=== PATIENT | male | born 1970 | race Caucasian/White ===

== ENCOUNTER 2022-12-14 12:57 | Emergency (ER) | payer BC, SELFPAY ==
[2022-12-14 13:04] VITALS: BP 147/87; PULSE 107; RESP 20; TEMP 36.5; O2SAT 97
--- NOTE | 2022-12-14 14:24 | ED.BACK ---
HPI - Back Pain/Injury General Chief Complaint: Back Pain/Injury Stated Complaint: lower back pain Time Seen by Provider: 12/14/22 14:24 Source: patient, RN notes reviewed and old records reviewed Mode of arrival: ambulatory Limitations: no limitations History of Present Illness HPI Narrative: 52-year-old male presents to [facility] with complaints pain to lower back which started last night after he twisted getting out of his car. Patient reports history of previous back problems denies any radiation of pain down his legs denies any tingling or numbness. Patient has no difficulty with passing stools or urinating no saddle paresthesia. Patient has taken Tylenol and used moist heat to has back which has helped discomfort some.Patient reports that lower back feels tight did take a friends muscle relaxer but did not help. MD elicited complaint: back pain Pertinent past history: prior back pain Onset (ago): day(s) (last night) Pain scale (0-10): 6 Location: lumbar spine Radiation: none Related Data Home Medications Medication Instructions Recorded Confirmed meloxicam 7.5 mg tablet mg 12/14/22 Allergies Allergy/AdvReac Type Severity Reaction Status Date / Time No Known Allergies Allergy Verified 12/14/22 13:05 Review of Systems Review of Systems: CONSTITUTIONAL: Denies fever, chills, or sweats. CARDIOVASCULAR: Denies chest pain, palpitations, or edema. RESPIRATORY: Denies cough or dyspnea. GASTROINTESTINAL: Denies abdominal pain, nausea, vomiting, or diarrhea. GENITOURINARY: Denies dysuria or hematuria. SKIN: Denies rash or itching. MUSCULOSKELETAL: Reports back pain denies any radiation down legs, no other joint pain or myalgia reported at this time NEUROLOGIC: Denies headache, numbness, or weakness. All systems reviewed & are unremarkable except as noted in HPI and below PMFSH Past Medical History Medical History (Updated 12/15/22 @ 08:00 by Rosa M Gaines NP) Back pain Comments At time of signature, agree with nursing past medical, surgical, social and family history. There is no relevant family history pertinent to the presenting complaint Exam Narrative: GENERAL: Well-appearing, well-nourished, and in no acute distress. HEAD: Normocephalic, atraumatic. EYES: PERRLA and EOMI. NECK: Supple. No lymphadenopathy. CHEST: Clear to auscultation. No respiratory distress. HEART: Regular rate and rhythm. Distal pulses palpable and equal, cap refill <3 seconds ABDOMEN: Soft, nontender, nondistended, normal active bowel sounds, no palpable or pulsatile masses. No CVA tenderness MUSCULOSKELETAL: Normal range of motion and strength in all extremities; 5/5 strength with hip flexion and extension, dorsiflexion and extension, knee flexion and extension, plantar flexion and extension. Normal sensation in dermatomal distributions with sensitivity to light touch and pain. No midline back tenderness to palpation. No paraspinal tenderness. Transfers from lying to sitting to standing. Pain across lower back with tenderness at SI region bilaterally. SKIN: Warm, dry, no rash. No ecchymosis, erythema, open wounds to back. NEURO: No focal deficits. Alert and oriented x3. Reflexes intact. Normal gait. PSYCH: Normal mood and affect Course Course Emergency Course: Patient is aware of diagnosis, understands and agrees to treatment plan. Anticipatory guidance given. Patient agrees to follow-up as directed and is aware of reasons to seek care at the emergency department. Portions of this record may have been created with voice recognition software Level of Care: [facility] Visit Vital Signs Vital signs: Vital Signs Temperature 36.5 C 12/14/22 13:04 Pulse Rate 107 H 12/14/22 13:04 Respiratory Rate 20 12/14/22 13:04 Blood Pressure 147/87 H 12/14/22 13:04 Pulse Oximetry 97 12/14/22 13:04 Oxygen Delivery Room Air 12/14/22 13:04 Temperature 36.5 C 12/14/22 13:04 Pulse Rate 107 H
== END 2022-12-14 14:41 | disposition home or self-care (01) ==
PROVIDERS: Emergency Provider Registered Nurse
DX: S39.012A Strain of muscle, fascia and tendon of lower back, initial encounter (principal); X50.9XXA Other and unspecified overexertion or strenuous movements or postures, initial encounter
CPT/HCPCS: 99213; G0463